=== PATIENT | male | born 1935 | race Caucasian/White ===

== ENCOUNTER → 2020-06-21 09:00 | Outpatient (BNVA) | payer MEDICARE, BC, SELFPAY | PROVIDERS: Visit Provider Student in an Organized Health Care Education/Training Program | DX: M20.12 Hallux valgus (acquired), left foot (principal); M19.072 Primary osteoarthritis, left ankle and foot; M25.852 Other specified joint disorders, left hip | CPT/HCPCS: 99203 ==